=== PATIENT | female | born 2000 | race Caucasian/White ===

== ENCOUNTER 2022-05-09 07:44 | Emergency (ER) | payer BC, OTHER ==
[~2022-05-09] VITALS: Ht 167.6 cm; Wt 86.4 kg
[2022-05-09] MEDS ORDERED: IMURAN 50MG TAB50 MG PO (09:28)
[2022-05-09] MEDS ORDERED: ZYRTEC 10MG10 MG PO (10:21)
[2022-05-09 10:34] VITALS: BP 101/68; PULSE 81
== END 2022-05-09 10:34 | disposition home or self-care (01) ==
LOC: COL.ER 07:44
DX: L50.9 Urticaria, unspecified (principal); Z28.310 Unvaccinated for COVID-19

== ENCOUNTER → 2023-10-24 | Outpatient (CLI) | payer BC, OTHER ==
[~2023-10-24] MED LIST: IMURAN 50MG TAB50 MG PO; ZYRTEC 10MG10 MG PO
[2023-10-24 14:29] LABS: HEMATOCRIT 44.1 % (37.0-47.0); HEMOGLOBIN 15.4 g/dl (12.5-16.0); MEAN CELL VOLUME 86 fl (80.0-100.0); MEAN CORPUSCULAR HEMOGLOBIN 30 pg (27-31); MEAN CORPUSCULAR HGB CONC 35 g/dl (33.0-37.0); MEAN PLATELET VOLUME 9.4 fl (7.4-10.4); PLATELET COUNT 275 K/mm3 (130-400); RED BLOOD COUNT 5.12 M/mm3 (4.10-5.30); REDCELL DISTRIBUTION WIDTH-CV 12.4 % (11.5-14.5)
[2023-10-24 14:48] LABS: ALBUMIN 4.8 gm/dL (3.5-5.0); BILIRUBIN,DIRECT 0.3 mg/dL (0.0-0.5); BILIRUBIN,TOTAL 0.9 mg/dL (0.2-1.2); TOTAL PROTEIN 7.9 gm/dL (6.2-8.1)
== END ==
LOC: COL.LAB 13:26
PROVIDERS: Nurse Practitioner Pediatrics
DX: K75.4 Autoimmune hepatitis (principal)